=== PATIENT | female | born 1955 | race Caucasian/White ===

== ENCOUNTER 2023-04-27 23:50 | Inpatient (IN) | payer MEDICARE, SELFPAY ==
[2023-04-27 19:09] VITALS: BP 166/97; BMI 26.3
[2023-04-27 19:44] LABS: % Basophils 0.7 % (0-2); % Eosinophils 1.2 % (0-6); % Immature Granulocytes 0.3 % (0-0.5); % Lymphocytes 20.9 % (20.5-51.1); % Monocytes 10.7 % (1.7-9.3); % Neutrophils 66.2 % (42.2-75.2); Absolute Basophils 0.1 10^3/uL (0-0.2); Absolute Eosinophils 0.1 10^3/uL (0-0.7); Absolute Lymphocytes 2.4 10^3/uL (1.2-3.4); Absolute Monocytes 1.2 10^3/uL (0.1-0.6); Absolute Neutrophils 7.6 10^3/uL (1.4-6.5); Hematocrit 45.2 % (37.0-47.0); Mean Corp Hgb Conc. 33.2 g/dL (33.0-37.0); Mean Corpuscular Hgb 29.4 pg (27.0-31.0); Mean Corpuscular Volume 88.6 fL (81.0-99.0); Mean Platelet Volume 9.5 fL (7.4-10.4); Nucleated Red Blood Cells % 0 %; Platelet Count 352 10^3/uL (130-400); Red Cell Dist. Width 12.7 % (11.5-14.5); White Blood Cell Count 11.5 10^3/uL (4.8-10.8)
[2023-04-27 20:06] LABS: ALT (SGPT) 33 U/L (0-35); AST (SGOT) 26 U/L (14-36); Albumin 4.4 g/dl (3.5-5.0); Alkaline Phosphatase 66 U/L (38-126); Blood Urea Nitrogen 14 mg/dl (7-17); Calcium 9.6 mg/dl (8.4-10.2); Carbon Dioxide 26 mmol/L (22-30); Chloride 100 mmol/L (98-107); Estimated Creatinine Clearance 69 ml/min; Glucose 147 mg/dl (70-99); Potassium 4.5 mmol/L (3.5-5.1); Sodium 135 mmol/L (135-145); Total Bilirubin 0.8 mg/dl (0.2-1.3); eGFR > 60.00
[2023-04-27 20:07] LABS: Lipase 51 U/L (23-300)
[2023-04-27 21:17] VITALS: BP 128/66
--- NOTE | 2023-04-27 22:11 | ED.GENMED ---
History of Present Illness
General
Chief Complaint: Abdominal Pain
Source: patient and spouse
Time Seen by Provider: 04/27/23 20:29
Travel History
Have you had any contact with someone who has COVID-19?: No
Do you have any symptoms of coronavirus? Fever > 100 degrees, chills, cough, shortness of breath, sore throat, loss of taste or smell, muscle aches, or headache?: No
History of Present Illness
History of Present Illness:
67-year-old female presents with left lower quad abdominal pain. Patient states she had some pain about 2 weeks ago but seem to get little better. Today starting this morning the pain is persistent left side. She had a colonoscopy in her past
that showed diverticular disease. She has never had diverticulitis. Has had a low-grade temperature at home she states. Denies melena or hematochezia.
Past History
Past History
ED Past Surgical History: Tonsilectomy
Phy Exam
Physical Exam
Physical Exam:
CONSTITUTIONAL Patient alert and oriented to person, place and time. Well-appearing. Vital signs reviewed.
HEAD atraumatic, normocephalic.
EYES eyelids normal to inspection, Extraocular muscles intact, Conjunctiva normal, Sclera normal.
NECK normal range of motion, Trachea midline, no jugular venous distention.
RESPIRATORY CHEST No respiratory distress noted, Chest expansion equal, Bilateral breath sounds clear.
CARDIOVASCULAR regular rate and rhythm, Heart sounds normal.
ABDOMEN moderate left lower quadrant tenderness, mild distention, mild diffuse tenderness
BACK normal inspection, no obvious deformities
UPPER EXTREMITY range of motion normal, Motor strength normal, no cyanosis, no edema.
LOWER EXTREMITY range of motion normal, Motor strength normal, no cyanosis, no edema.
NEURO Speech normal, No focal motor deficits, Bono coma scale 15, Memory normal, Cranial Nerves intact to screening exam.
SKIN skin warm, dry, and normal in color.
PSYCHIATRIC patient oriented to person place and time, Normal affect.
Course
Orders/Labs/Results
Orders:
Orders
04/27/23 19:12
EKG [Electrocardiogram (*1)] Urgent
Reason for Study: Tachycardia
EKG- Treatment ONCE
04/27/23 19:25
Complete Blood Count/With Diff Urgent
Comprehensive Metabolic Panel Urgent
Lipase Urgent
04/27/23 20:54
CT Abd/pelvis W Iv Cont Urgent
Comment:
Reason For Exam: LLQ abd pain
04/27/23 22:58
Piperacillin/Tazo 3.375 Gram [Zosyn] 3.375 gram in 50 ml IV NOW
Abnormal Lab Results
04/27/23
19:25
WBC 11.5 H 10^3/uL
(4.8-10.8)
Absolute Neuts (auto) 7.6 H 10^3/uL
(1.4-6.5)
Absolute Monos (auto) 1.2 H 10^3/uL
(0.1-0.6)
Monocytes % 10.7 H %
(1.7-9.3)
Glucose 147 H mg/dl
(70-99)
04/27/23 19:25
04/27/23 19:25
Vital Signs
Initial and Last Documented VS:
Initial Vital Signs
Temp Pulse Resp BP Pulse Ox
98.6 F 114 24 166/97 99
04/27/23 19:09 04/27/23 19:09 04/27/23 19:09 04/27/23 19:09 04/27/23 19:09
Last Documented Vital Signs
Temp Pulse Resp BP Pulse Ox
98.6 F 107 18 128/66 96
04/27/23 19:09 04/27/23 21:17 04/27/23 21:17 04/27/23 21:17 04/27/23 21:17
MDM/Problems Addressed
MDM/Problems Addressed:
Abdominal pain, acute diverticulitis, perforated viscus
*Radiology
Radiology exam reviewed: preliminary read by ED provider (Free air noted) and radiology read reviewed
*Pulse Oximetry
Patient hypoxic: no
*Check And Transfer Beader Interpretation
Rate: normal
Interpretation: normal
Rhythm: sinus
*Critical Care Note
Total Time (30-74mins, 75-104mins- exclusive of procedures): 45 minutes
Data Reviewed
Review of Other/Old Records Reveals: Operative Reports (Prior colonoscopy reviewed from 2018)
Source: patient and spouse
Prescriptions/Medications Considered But Not Given:
Consider pain medication but patient does not want them at this time
Patient Management
Discussion with other providers: [employer] (Case discussed with colorectal surgery)
Escalation/DeEscalation of care consider admission/obs:
67-year-old female with acute diverticulitis and perforation. Admit. colorectal surgery reviewing CT...
ED Attending Note
-
Portions of this chart may have been created with voice recognition software.� Occasional wrong word or��sound alike� substitutions may have occurred due to the inherent limitations of voice recognition software.
Discharge Plan
Departure
Patient Disposition: Admit
Date of Disposition: 04/27/23
Time of Disposition: 23:07
Admit to: Med/Surg
Presentation/result/management discussed w/ accepting MD/DO: Hospitalist
Discharge Problem:
Perforated abdominal viscus, Acute diverticulitis
Prescriptions:
No Action
diazepam [Valium] 5 mg tablet
5 mg PO TID PRN (Reason: muscle spasm) Qty: 10 0RF
lidocaine 5 % adhesive patch,medicated
1 patch topical DAILY Qty: 15 0RF
Rx Instructions:
remove after 12 hrs
Interventions
Interventions:
*Risk Screen - Suicide Last Done: 04/27/23 19:09
*General Assessment Last Done: 04/27/23 21:07
*Neglect/Abuse Screening Last Done: 04/27/23 19:09
ED- Fall Risk Assessment Last Done: 04/27/23 21:19
*ED COVID-19 Vaccine History Last Done: 04/27/23 19:09
RM-Lmoixu-Dbwdzrmcld Assessment Last Done: 04/27/23 21:19
[2023-04-27] MEDS: ZOSYN 50 IV (23:08)
[2023-04-27 23:13] VITALS: BP 129/75
--- NOTE | 2023-04-27 23:43 | HPS.HSE ---
Family Physician
-
Family Physician: Heidi Ramirez
Chief Complaint
-
abdominal pain
History of Present Illness
67-year-old female past medical history of osteoporosis, diverticulosis here for left lower quadrant abdominal pain for 2 weeks. She did have some chills today. Denies nausea or vomiting. She has been constipated recently but did have vomiting
today. Denies any chest pain or shortness of breath. Denies any blood in stool.
Medical History
Past Medical History
Past Medical History: Reports Other (osteoporosis, diverticulosis)
Past Surgical History: Reports None
Social History
Tobacco: Non-smoker
Alcohol: None
Drug: None
Family History
Family History: Not pertinent
Allergies / Home Medications
Allergies reflects when Allergies were last updated in [employer].
Home Medications with original date entered in [employer]
Allergy/Medication List:
Allergies
Allergy/AdvReac Type Severity Reaction Status Date / Time
No Known Allergies Allergy Verified 10/17/22 09:42
Home Medications
cholecalciferol (vitamin D3) 50 mcg (2,000 unit) tablet (Vitamin D3) 50 mcg PO DAILY 04/27/23
Review of Systems
-
History Source: Patient
A 12 point ROS was completed and negative except as noted: Yes
Constitutional: Reports No Symptoms
EENT: Reports No Symptoms
Respiratory: Reports No Symptoms
Cardiac: Reports No Symptoms
Abdomen/GI: Reports See HPI
: Reports No Symptoms
Musculoskeletal: Reports No Symptoms
Skin: Reports No Symptoms
Neurological: Reports No Symptoms
Endocrine: Reports No Symptoms
Hematologic/Lymphatic: Reports No Symptoms
Psych: Reports No Symptoms
Physical Exam
Vital Signs
Vital Signs
Temp Pulse Resp BP Pulse Ox
98.6 F 107 18 128/66 96
04/27/23 19:09 04/27/23 21:17 04/27/23 21:17 04/27/23 21:17 04/27/23 21:17
Physical Exam
General: Well Developed, Well Nourished and No Apparent Distress
HEENT: NormoCephalic, Moist mucous membranes and Atraumatic
Respiratory: Clear
Cardiac: S1/S2 and Regular Rhythm; No Murmur or Rub
GI: Soft, Non Distended, Normal Bowel Sounds and Tender (LLQ ); No Organomegaly
Rectal: Deferred by Provider
Musculoskeletal: No Clubbing, No Cyanosis and No Edema
Skin: No Rash
Neuro: Nonfocal/grossly intact
Laboratory Results
-
04/27/23 19:25
04/27/23 19:25
Laboratory Results
Total Bilirubin 0.8 mg/dl (0.2-1.3) 04/27/23 19:25
AST 26 U/L (14-36) 04/27/23 19:25
ALT 33 U/L (0-35) 04/27/23 19:25
Alkaline Phosphatase 66 U/L (38-126) 04/27/23 19:25
Lipase 51 U/L (23-300) 04/27/23 19:25
Data Reviewed
-
Lab Data: Labs Reviewed by me
Old Records: Reviewed
Impression/Plan
-
IMPRESSION:
PLAN:
# Sepsis (sepsis, tachycardia ) secondary to severe sigmoid diverticulitis with perforation
-N.p.o.
-IV fluids
-Zosyn
-Colorectal to take to OR
-Dilaudid, Zofran as needed
Diverticulosis
Osteoporosis
Full code
DVT prophylaxis�SCDs
NPO
[2023-04-27] MEDS: NSS 1000 IV (23:57)
[2023-04-28] VITALS (17 sets, daily range): BP systolic 50–133; BP diastolic 32–88; BMI 25.7
--- NOTE | 2023-04-28 00:38 | CON.CRS ---
Consultation
-
Performing Provider: Robert Davis MD
Reason for Consultation: diverticulitis
Medical History
-
Chief Complaint: Abdominal pain
History of Present Illness:
67-year-old female with 2 weeks of abdominal discomfort which started on the right and has migrated over to the left and worsened with time. She also admits to some chills. Denies fevers. Denies changes in bowel habits. No prior episodes of
diverticulitis. Had a colonoscopy by Dr. Phillips in the past confirming diverticulosis and apparently showing some polyps. Blood work in the ER reveals mild leukocytosis with a white count of 11.5. Mildly tachycardic but normotensive. CT scan of
the abdomen and pelvis was performed and reveals inflammation of the proximal sigmoid consistent with diverticulitis as well as localized free air and subdiaphragmatic upper abdominal air. I was consulted for a colorectal surgical opinion regarding
her situation. 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
Past Medical History
Past Medical History: Other (Osteoporosis; diverticulosis; colon polyps)
Past Surgical History: Gynecological (Hysterectomy) and Tonsilectomy
Social History
Tobacco: Non-Smoker
Alcohol: None
Personal:
Living: With Family
Employment: Retired
Family History
Family History: Reviewed & Not Pertinent
Allergies / Home Medications
Allergy/AdvReac Type Severity Reaction Status Date / Time
No Known Allergies Allergy Verified 10/17/22 09:42
Medication Instructions Recorded Confirmed Type
cholecalciferol (vitamin D3) 50 50 mcg PO DAILY 04/27/23 04/27/23 History
mcg (2,000 unit) tablet (Vitamin
D3)
Review of Systems
-
A 10 point review of systems was completed, and was negative except as per HPI.
Physical Exam
Vital Signs
Temp 98.5 F 04/28/23 00:17
Pulse 105 04/28/23 00:17
Resp Rate 18 04/27/23 21:17
Blood pressure 133/77 04/28/23 00:00
SaO2 97 04/28/23 00:18
04/26/23 04/27/23 04/28/23
06:59 06:59 06:59
Actual Weight 71.668 kg
Body Mass Index (BMI) 26.3
Lab Results / Allergies
04/27/23 19:25
04/27/23:
WBC 11.5 10^3/uL (4.8-10.8) H 04/27/23:
Hgb 15.0 g/dL (12.0-16.0) 04/27/23:
Hct 45.2 % (37.0-47.0) 04/27/23:
Plt Count 352 10^3/uL (130-400) 04/27/23:
Abs Immat Gran (auto) 0.0 10^3/uL (0-0.05) 04/27/23:25
Neutrophils % 66.2 % (42.2-75.2) 04/27/23:25
Allergy/AdvReac Type Severity Reaction Status Date / Time
No Known Allergies Allergy Verified 10/17/22 09:42
Physical Exam
General: Well Developed
HEENT: Normocephalic
Respiratory: Clear
Cardiac: S1/S2 and Regular Rhythm
GI: Tender (Localized peritonitis of the left lower quadrant; tender but less so than other quadrants) and Distended (Mild)
Musculoskeletal: No Clubbing, No Cyanosis and No Edema
Neuro: Awake, Alert and Oriented
Psych: Calm
Data Reviewed
-
CT Scan: Image Personally Visualized and interpreted, Report Reviewed by me, Discussed with Patient and Discussed with Family
Labs: Labs Reviewed by me, Discussed with Patient and Discussed with Family
Assessment / Plan
-
67-year-old otherwise healthy female with known diverticular disease but no prior attacks of diverticulitis who currently has sigmoid diverticulitis complicated by perforation/free air. Some of the free air is in the upper quadrants which is a
concerning finding. She is also fairly tender and tachycardic. I discussed situation in detail with the patient and her at the bedside. I discussed the option of a trip to the OR for exploration with sigmoidectomy and likely colostomy. I
told her there is a chance that I would anastomose her although this is less likely. Risk benefits were discussed. Risk described included but not limited to bleeding, infection, anastomotic or rectal stump leak, masslike stricture, ureteral
injury, bowel or solid organ injury, urinary or sexual dysfunction, recurrence of diverticulitis, hernia formation, and anesthetic risk. I also discussed the option of continuing medical measures and close observation. She opted for surgery. All
questions answered.
--- NOTE | 2023-04-28 04:08 | W.IMMPOSTOP ---
Addendum entered and electronically signed by Lexa Davis MD 04/28/23 04:17:
Updated patient's , Felice, via phone conversation.
Original Note:
Surgical Immed Post Op Note
-
Primary Surgeon: Robert Davis MD
Assisting Surgeon: none
Pre-op Diagnosis: perforated sigmoid diverticulitis
Post-op Diagnosis: same
Procedure Performed: 1) sigmoidectomy 2) flexible sigmoidoscopy
Anesthesia Type: general plus local
Specimen / Cultures: sigmoid colon
Estimated Blood Loss: 100 cc
Complications: no immediate
Operative Findings: inflamed perforated proximal sigmoid without gross contamination
#19 Candelario in pelvis,
Pike in bladder.
Will send to med surg.
Will continue antibiotics empirically for a few days.
[2023-04-28] MEDS: NSS 1000 IV ×2 (05:10→14:41)
--- NOTE | 2023-04-28 05:10 | PTCARENOTE ---
Pt recieved from PACU. VSS. 2 L NC. axoo3 but drowsey and arrousable to verbal stimuli, in NAD. Bed locked and in lowest position, side rails in place, call light within reach, and questions answered at time of assessment.
[2023-04-28] MEDS: TORADOL 10 MG IV (05:51)
[2023-04-28 07:20] LABS: ALT (SGPT) 29 U/L (0-35); AST (SGOT) 29 U/L (14-36); Albumin 3.2 g/dl (3.5-5.0); Alkaline Phosphatase 55 U/L (38-126); Blood Urea Nitrogen 11 mg/dl (7-17); Calcium 7.4 mg/dl (8.4-10.2); Carbon Dioxide 19 mmol/L (22-30); Chloride 104 mmol/L (98-107); Estimated Creatinine Clearance 81 ml/min; Glucose 172 mg/dl (70-99); Magnesium 2.3 mg/dl (1.6-2.3); Potassium 4.3 mmol/L (3.5-5.1); Sodium 131 mmol/L (135-145); Total Bilirubin 1.6 mg/dl (0.2-1.3); Total Protein 5.5 g/dl (6.3-8.2); eGFR > 60.00
[2023-04-28 08:05] LABS: Hepatitis C Antibody Negative (Negative)
[2023-04-28] MEDS: MORPHINE SULFATE 2 MG IV ×2 (08:39→12:14)
[2023-04-28] MEDS: NSS (PRESERVATIVE FREE) 10 ML IV (08:40)
[2023-04-28] MEDS: PROTONIX IV 40 MG IV (08:41)
[2023-04-28] MEDS: ZOSYN 50 IV ×3 (08:41→19:50)
[2023-04-28 08:59] LABS: % Basophils 0.3 % (0-2); % Immature Granulocytes 0.4 % (0-0.5); % Lymphocytes 7.7 % (20.5-51.1); % Monocytes 7.9 % (1.7-9.3); % Neutrophils 83.7 % (42.2-75.2); Absolute Immature Granulocytes 0.1 10^3/uL (0-0.05); Absolute Neutrophils 10.6 10^3/uL (1.4-6.5); Hematocrit 38.5 % (37.0-47.0); Hemoglobin 13.6 g/dL (12.0-16.0); Mean Corp Hgb Conc. 35.3 g/dL (33.0-37.0); Mean Corpuscular Hgb 30.3 pg (27.0-31.0); Mean Corpuscular Volume 85.7 fL (81.0-99.0); Mean Platelet Volume 9.5 fL (7.4-10.4); Nucleated Red Blood Cells % 0 %; Platelet Count 300 10^3/uL (130-400); Red Blood Cell Count 4.49 10^6/uL (4.20-5.40); Red Cell Dist. Width 12.6 % (11.5-14.5); White Blood Cell Count 12.7 10^3/uL (4.8-10.8)
--- NOTE | 2023-04-28 10:16 | W.PN.HOSP.TC ---
Today's Communication/Plan
-
see A/P
Assessment / Plan
Assessment / Plan
67-year-old female past medical history of osteoporosis, diverticulosis here for left lower quadrant abdominal pain for 2 weeks. She also c/o chills and vomited on DOA.
A/P:
# Sepsis POA secondary to severe sigmoid diverticulitis with perforation
# h/o Diverticulosis
s/p emergent sigmoidectomy on admission 04/28/23
cont NPO, with IVF
Cont Zosyn
Follow blood Cx (ordered after Abx)
Pain control with Morphine PRN
antiemetic with Zofran as needed
# Acute hypoxic respiratory insufficiency
pt placed on 2L NC, cont for now per pt preference
# Osteoporosis
# Hyponatremia
Full code
DVT prophylaxis�SCDs
NPO
Anticipated Discharge: > 48 hours
Subjective/Interval History
-
Date of Service: April 28, 2023
Objective Data
-
Labs:
Laboratory Results
04/28/23 04/28/23
06:19 08:34
WBC Cancelled 12.7 H
Hgb Cancelled 13.6
Hct Cancelled 38.5
Plt Count Cancelled 300
Sodium 131 L
Potassium 4.3
Chloride 104
Carbon Dioxide 19 L
BUN 11
Creatinine 0.6
Glucose 172 H
Calcium 7.4 L D
Total Bilirubin 1.6 H
AST 29
ALT 29
Alkaline Phosphatase 55
Vital Signs:
Vital Signs
Temp Pulse Resp BP Pulse Ox
36.5 C 68 16 101/62 96
04/28/23 07:15 04/28/23 07:15 04/28/23 07:15 04/28/23 07:15 04/28/23 07:15
I&O
04/27/23 04/28/23 04/29/23
06:59 06:59 06:59
Intake Total 700 / 700
Output Total 310 / 310
Balance 390 / 390
Review of Systems
-
All other systems: Reviewed and negative
Physical Exam
-
General: Well Developed, Well Nourished, No Apparent Distress, Comfortable and Conversant
HEENT: Normocephalic, Atraumatic, Nose Appears Normal, Ears Appear Normal and Oxygen (2L NC)
Respiratory: Clear to Auscultation and Non Labored Respirations; Negative Accessory Resp Muscle Use
Cardiac: Regular Rhythm and S1/S2
GI: Soft, Nontender, Nondistended, Normal Bowel Sounds and Other (abdominal drain in place )
Skin: Warm and Dry
Neuro: Awake, Alert, Oriented and AO x 3
Psych: Calm and Intact Judgement/Insight
Data Reviewed
-
CT Scan: Report Reviewed by me
Labs: Labs Reviewed by me
--- NOTE | 2023-04-28 11:03 | W.PN.CRS1 ---
Today's Communication / Plan
-
Okay for DVT PPx
Possible clears this p.m.
Possible DC Pike in p.m. if UOP adequate
Continue IV Zosyn
Assessment/Plan
-
67-year-old female with PMH of diverticulosis who presents for 2 weeks of LLQ abdominal pain, found to have perforated diverticulitis with pneumoperitoneum, WBC 11.5, hemodynamically stable
POD 0 exlap sigmoidectomy
Wbc 12.7, Hb 13.6 from 15.0
�Continue n.p.o. with sips, okay for p.o. meds; possible clears this afternoon
� Pain control with IV Toradol and IV morphine as needed
�Will start DVT PPx with Lovenox
� Continue IV Zosyn, would recommend 4-day course
� Continue Pike, if UOP adequate by this afternoon, will DC
� IAN drain to bulb suction
� IS/OOB, will consult PT
� Appreciate hospitalist for comorbidities
Subjective Data
Subjective Data
Date of Service: April 28, 2023
No overnight events.
Pain controlled.
Denies nausea/vomiting. Tolerating sips
No bowel function +voiding
Pt is not OOB yet
Objective Data
-
Vital Signs
Temp Pulse Resp BP Pulse Ox
97.7 F 68 16 101/62 96
04/28/23 07:15 04/28/23 07:15 04/28/23 07:15 04/28/23 07:15 04/28/23 07:15
Intake & Output
04/27/23 04/28/23 04/29/23
06:59 06:59 06:59
Intake Total 700 / 700
Output Total 310 / 310
Balance 390 / 390
Intake:
IV fluids (Total) 700 / 700
normosol 700 / 700
Output:
Drain Output (Total)
Right Lower Abdomen Taurus-
Walker
Urine, Pike 100 / 100
Lab Results
04/28/23 08:34
04/28/23 06:19
Physical Exam
-
General: No Acute Distress and AOx3
HEENT: Grossly Normal
Abdomen: Soft, Non Distended, Non Tender (Appropriately tender), No Guarding and No Rebound
Skin: Warm and Dry
Wound: No Signs of Infection, Dressing in Place and No Skin Erythema
[2023-04-28] MEDS: LOVENOX 40 MG SC (17:03)
[2023-04-28] MEDS: MORPHINE SULFATE 4 MG IV ×2 (18:12→21:44)
[2023-04-29] MEDS: NSS 1000 IV (01:20)
[2023-04-29] MEDS: ZOSYN 50 IV ×4 (01:21→20:50)
[2023-04-29] MEDS: MORPHINE SULFATE 2 MG IV ×2 (01:21→06:12)
[2023-04-29 03:30] VITALS: BP 109/54
[2023-04-29 06:05] VITALS: BMI 27.9
[2023-04-29 07:42] VITALS: BP 116/63
[2023-04-29] MEDS: NSS (PRESERVATIVE FREE) 10 ML IV (08:25)
[2023-04-29] MEDS: PROTONIX IV 40 MG IV (08:25)
[2023-04-29 08:30] LABS: Hematocrit 35.2 % (37.0-47.0); Hemoglobin 11.8 g/dL (12.0-16.0); Mean Corp Hgb Conc. 33.5 g/dL (33.0-37.0); Mean Corpuscular Hgb 29.6 pg (27.0-31.0); Mean Corpuscular Volume 88.2 fL (81.0-99.0); Mean Platelet Volume 10.1 fL (7.4-10.4); Platelet Count 272 10^3/uL (130-400); Red Blood Cell Count 3.99 10^6/uL (4.20-5.40); Red Cell Dist. Width 13.1 % (11.5-14.5); White Blood Cell Count 10.4 10^3/uL (4.8-10.8)
[2023-04-29 09:15] VITALS: BP 112/58; PULSE 78; O2SAT 95
[2023-04-29 09:20] LABS: Blood Urea Nitrogen 10 mg/dl (7-17); Calcium 7.9 mg/dl (8.4-10.2); Carbon Dioxide 25 mmol/L (22-30); Chloride 106 mmol/L (98-107); Estimated Creatinine Clearance 69 ml/min; Glucose 97 mg/dl (70-99); Potassium 3.9 mmol/L (3.5-5.1); Sodium 136 mmol/L (135-145); eGFR > 60.00
--- NOTE | 2023-04-29 09:55 | W.PN.HOSP.TC ---
Today's Communication/Plan
-
see A/P
Assessment / Plan
Assessment / Plan
67-year-old female past medical history of osteoporosis, diverticulosis here for left lower quadrant abdominal pain for 2 weeks. She also c/o chills and vomited on DOA.
A/P:
# Sepsis POA secondary to severe sigmoid diverticulitis with perforation
# h/o Diverticulosis
s/p emergent sigmoidectomy on admission 04/28/23
advanced to clears, cont clears for now, ADAT per surgery
Cont Zosyn
blood Cx negative (obtained after Abx)
Pain control with Morphine PRN ; antiemetic with Zofran as needed
# Acute hypoxic respiratory insufficiency, resolved
weaned off O2
# Osteoporosis
# Hyponatremia
Full code
DVT prophylaxis�SCDs
DW CRS
Anticipated Discharge: 24 - 48 hours
Subjective/Interval History
-
Date of Service: April 29, 2023
Objective Data
-
Labs:
Laboratory Results
04/29/23
06:32
WBC 10.4
Hgb 11.8 L
Hct 35.2 L
Plt Count 272
Sodium 136
Potassium 3.9
Chloride 106
Carbon Dioxide 25
BUN 10
Creatinine 0.7
Glucose 97
Calcium 7.9 L
Vital Signs:
Vital Signs
Temp Pulse Resp BP Pulse Ox
36.8 C 75 18 116/63 95
04/29/23 07:42 04/29/23 07:42 04/29/23 07:42 04/29/23 07:42 04/29/23 07:42
I&O
04/28/23 04/29/23 04/30/23
06:59 06:59 06:59
Intake Total 700 / 700 3080 / 3080
Output Total 310 / 310 1705 / 1705
Balance 390 / 390 1375 / 1375
Review of Systems
-
All other systems: Reviewed and negative
Physical Exam
-
General: Well Developed, Well Nourished, No Apparent Distress, Comfortable and Conversant
HEENT: Normocephalic, Atraumatic, Nose Appears Normal and Ears Appear Normal
Respiratory: Clear to Auscultation and Non Labored Respirations; Negative Accessory Resp Muscle Use
Cardiac: Regular Rhythm and S1/S2
GI: Soft, Nontender, Nondistended, Normal Bowel Sounds and Other (abdominal drain in place )
Skin: Warm and Dry
Neuro: Awake, Alert, Oriented and AO x 3
Psych: Calm and Intact Judgement/Insight
Data Reviewed
-
CT Scan: Report Reviewed by me
Labs: Labs Reviewed by me
[2023-04-29] MEDS: TORADOL 10 MG IV ×2 (12:29→18:29)
--- NOTE | 2023-04-29 12:36 | W.PN.CRS1 ---
Today's Communication / Plan
-
Clear liquids
Trend labs
Pain control
Assessment/Plan
-
67-year-old female with PMH of diverticulosis who presents for 2 weeks of LLQ abdominal pain, found to have perforated diverticulitis with pneumoperitoneum
POD 1 exlap sigmoidectomy
Electrolytes stable
Mild acute blood loss anemia from intraop losses with some component of hemodilution
Await bowel function
- H/H this afternoon. CBC, BMP in am
� Continue clear liquids
� Pain control with IV Toradol scheduled and prn Acetaminophen, Dilaudid
� SCDs while in bed. TEDs. Lovenox 40mg given yesterday, will hold tonight if h/h still drifting down
� Continue IV Zosyn, would recommend 4-day course total
� IAN drain to bulb suction
� IS/OOB, PT following
� Hospitalist following with us for medical management
Subjective Data
Procedure
1. Sigmoidectomy.
2. Flexible sigmoidoscopy.
Subjective Data
Date of Service: April 29, 2023
Patient seen and examined at bedside with Dr. Allen. Denies n/v. No flatus as of yet. Does note some mild generalized edema. Voiding since hastings removed. Questions addressed
Objective Data
-
Vital Signs
Temp Pulse Resp BP Pulse Ox
98.3 F 75 18 116/63 95
04/29/23 07:42 04/29/23 07:42 04/29/23 07:42 04/29/23 07:42 04/29/23 07:42
Intake & Output
04/28/23 04/29/23 04/30/23
06:59 06:59 06:59
Intake Total 700 / 700 3080 / 3080
Output Total 310 / 310 1705 / 1705
Balance 390 / 390 1375 / 1375
Intake:
Oral fluids 480 / 480
IV fluids (Total) 700 / 700 2400 / 2400
normosol 700 / 700
IV piggybacks 200 / 200
Output:
Drain Output (Total)
Right Lower Abdomen Taurus-
Walker
Urine, [place] 100 / 100 600 / 600
Urine, Voided 900 / 900
Lab Results
04/29/23 06:32
04/29/23 06:32
Physical Exam
-
General: No Acute Distress and AOx3
HEENT: Grossly Normal
Abdomen: Soft, Non Distended, Non Tender (Appropriately tender), No Guarding and No Rebound
Skin: Warm and Dry
Wound: No Signs of Infection, Dressing in Place (shadowing noted) and No Skin Erythema
--- NOTE | 2023-04-29 13:08 | CM ---
Reviewed the chart notes and spoke with the patient at the bedside. The patient is POD #1 exlap sigmoidectomy. The patient resides with her spouse in a two story home with two steps to enter. The patient reports no DME/VN/SNF in the past. The
patient confirmed her pharmacy of choice is the [facility]. Patient currently has a IAN drain. CM continues to be available to patient/family and is monitoring medical plan for needs at discharge.
Plan: Discharge to home when medically stable with no needs anticipated at this time.
[2023-04-29 13:51] LABS: Hematocrit 38.3 % (37.0-47.0); Hemoglobin 12.9 g/dL (12.0-16.0)
[2023-04-29 15:56] VITALS: BP 145/74
[2023-04-29] MEDS: LOVENOX 40 MG SC (18:29)
[2023-04-29] MEDS: NSS IV (18:35)
[2023-04-30] MEDS: TORADOL 10 MG IV ×5 (00:05→23:41)
[2023-04-30 00:08] VITALS: BP 137/75
[2023-04-30] MEDS: ZOSYN 50 IV ×4 (02:19→20:56)
[2023-04-30 06:00] VITALS: BMI 27.5
--- NOTE | 2023-04-30 06:13 | PTCARENOTE ---
Pt reports has passed flatus but has no BM this shift. reports pain well controlled with Toradol.
[2023-04-30 06:40] LABS: Hematocrit 34.6 % (37.0-47.0); Hemoglobin 11.6 g/dL (12.0-16.0); Mean Corp Hgb Conc. 33.5 g/dL (33.0-37.0); Mean Corpuscular Hgb 29.6 pg (27.0-31.0); Mean Corpuscular Volume 88.3 fL (81.0-99.0); Mean Platelet Volume 9.6 fL (7.4-10.4); Platelet Count 283 10^3/uL (130-400); Red Blood Cell Count 3.92 10^6/uL (4.20-5.40); Red Cell Dist. Width 12.8 % (11.5-14.5); White Blood Cell Count 8.2 10^3/uL (4.8-10.8)
[2023-04-30 06:59] LABS: Blood Urea Nitrogen 6 mg/dl (7-17); Calcium 8.5 mg/dl (8.4-10.2); Carbon Dioxide 27 mmol/L (22-30); Chloride 107 mmol/L (98-107); Estimated Creatinine Clearance 78 ml/min; Glucose 90 mg/dl (70-99); Potassium 3.7 mmol/L (3.5-5.1); Sodium 139 mmol/L (135-145); eGFR > 60.00
[2023-04-30 07:40] VITALS: BP 140/80
[2023-04-30] MEDS: DILAUDID 0.5 MG IV ×3 (08:26→22:05)
[2023-04-30] MEDS: NSS (PRESERVATIVE FREE) 10 ML IV (08:28)
[2023-04-30] MEDS: PROTONIX IV 40 MG IV (08:28)
--- NOTE | 2023-04-30 10:09 | W.PN.HOSP.TC ---
Today's Communication/Plan
-
see A/P
Assessment / Plan
Assessment / Plan
67-year-old female past medical history of osteoporosis, diverticulosis here for left lower quadrant abdominal pain for 2 weeks. She also c/o chills and vomited on DOA.
A/P:
# Sepsis POA secondary to severe sigmoid diverticulitis with perforation
# h/o Diverticulosis
s/p emergent sigmoidectomy on admission 04/28/23
diet advanced to clears, cont clears for now, ADAT per surgery
Cont empiric Zosyn for 5 days
Pain control with Morphine PRN ; antiemetic with Zofran as needed
# Acute hypoxic respiratory insufficiency, resolved
weaned off O2
# Osteoporosis
# Hyponatremia
Full code
DVT prophylaxis�lovenox SQ
DW CRS
Anticipated Discharge: 24 - 48 hours
Subjective/Interval History
-
Date of Service: April 30, 2023
Objective Data
-
Labs:
Laboratory Results
04/30/23
05:57
WBC 8.2
Hgb 11.6 L
Hct 34.6 L
Plt Count 283
Sodium 139
Potassium 3.7
Chloride 107
Carbon Dioxide 27
BUN 6 L
Creatinine 0.7
Glucose 90
Calcium 8.5
Vital Signs:
Vital Signs
Temp Pulse Resp BP Pulse Ox
36.4 C 81 18 140/80 96
04/30/23 07:40 04/30/23 07:40 04/30/23 07:40 04/30/23 07:40 04/30/23 07:40
I&O
04/29/23 04/30/23 05/01/23
06:59 06:59 06:59
Intake Total 3080 / 3080 1350 / 1350
Output Total 1705 / 1705 1927 / 1927
Balance 1375 / 1375 -578 / -578
Review of Systems
-
All other systems: Reviewed and negative
Physical Exam
-
General: Well Developed, Well Nourished, No Apparent Distress, Comfortable and Conversant
HEENT: Normocephalic, Atraumatic, Nose Appears Normal and Ears Appear Normal
Respiratory: Clear to Auscultation and Non Labored Respirations; Negative Accessory Resp Muscle Use
Cardiac: Regular Rhythm and S1/S2
GI: Soft, Nontender, Nondistended and Normal Bowel Sounds
Skin: Warm and Dry
Neuro: Awake, Alert, Oriented and AO x 3
Psych: Calm and Intact Judgement/Insight
Data Reviewed
-
CT Scan: Report Reviewed by me
Labs: Labs Reviewed by me
--- NOTE | 2023-04-30 11:37 | W.PN.CRS1 ---
Today's Communication / Plan
-
fulls
Assessment/Plan
-
67-year-old female with PMH of diverticulosis who presents for 2 weeks of LLQ abdominal pain, found to have perforated diverticulitis with pneumoperitoneum
POD#2 exlap sigmoidectomy
1. Vitals normal.
2. Labs normal.
3. Advance diet to fulls.
4. DVT prophylaxis: Lovenox, TEDS, SCDS.
5. Continue IAN drain - will remove prior to discharge.
6. Pain control with IV Toradol scheduled and prn Acetaminophen, Dilaudid.
7. OOB with PT.
8. OR pathology pending.
9. Continue IV antibiotics - zosyn.
10. Appreciate hospitalist.
Subjective Data
Procedure
1. Sigmoidectomy.
2. Flexible sigmoidoscopy.
Subjective Data
Date of Service: April 30, 2023
Patient states her pain is better controlled with the change to Dilaudid. She has flatus. She tolerated clears without difficulty.
Objective Data
-
Vital Signs
Temp Pulse Resp BP Pulse Ox
97.5 F 81 18 140/80 96
04/30/23 07:40 04/30/23 07:40 04/30/23 07:40 04/30/23 07:40 04/30/23 08:00
Intake & Output
04/29/23 04/30/23 05/01/23
06:59 06:59 06:59
Intake Total 3080 / 3080 1350 / 1350
Output Total 1705 / 1705 1928 / 1928
Balance 1375 / 1375 -578 / -578
Intake:
Oral fluids 480 / 480 1200 / 1200
IV fluids (Total) 2400 / 2400
IV piggybacks 200 / 200 150 / 150
Output:
Drain Output (Total)
Right Lower Abdomen Taurus-
Walker
Urine, Pike 600 / 600
Urine, Voided 900 / 900 183 / 183
Other:
Number of approximated MODERATE 2
amounts of urine
Lab Results
04/30/23 05:57
04/30/23 05:57
Physical Exam
-
General: No Acute Distress and AOx3
Abdomen: Soft, Non Distended and Non Tender
Wound: Dressing Changed and Other (nikki in place (bloody), kept in, dressing changed with gauze)
[2023-04-30 15:45] VITALS: BP 125/64
[2023-04-30] MEDS: LOVENOX 40 MG SC (17:19)
[2023-04-30 23:02] VITALS: BP 129/62
[2023-05-01] MEDS: ZOSYN 50 IV ×4 (03:00→21:07)
[2023-05-01 05:17] LABS: Hematocrit 36.1 % (37.0-47.0); Hemoglobin 12.1 g/dL (12.0-16.0); Mean Corp Hgb Conc. 33.5 g/dL (33.0-37.0); Mean Corpuscular Hgb 29.4 pg (27.0-31.0); Mean Corpuscular Volume 87.8 fL (81.0-99.0); Mean Platelet Volume 9.2 fL (7.4-10.4); Platelet Count 303 10^3/uL (130-400); Red Blood Cell Count 4.11 10^6/uL (4.20-5.40); Red Cell Dist. Width 12.7 % (11.5-14.5); White Blood Cell Count 7.3 10^3/uL (4.8-10.8)
[2023-05-01] MEDS: TORADOL 10 MG IV ×3 (05:34→17:56)
[2023-05-01 05:39] VITALS: BMI 27.6
[2023-05-01 05:44] LABS: Blood Urea Nitrogen 6 mg/dl (7-17); Calcium 8.7 mg/dl (8.4-10.2); Carbon Dioxide 26 mmol/L (22-30); Chloride 108 mmol/L (98-107); Estimated Creatinine Clearance 78 ml/min; Glucose 102 mg/dl (70-99); Potassium 3.6 mmol/L (3.5-5.1); Sodium 137 mmol/L (135-145); eGFR > 60.00
[2023-05-01 07:25] VITALS: BP 141/79
[2023-05-01] MEDS: NSS (PRESERVATIVE FREE) 10 ML IV (08:31)
[2023-05-01] MEDS: PROTONIX IV 40 MG IV (08:31)
[2023-05-01] MEDS: DILAUDID 0.5 MG IV (08:32)
[2023-05-01] MEDS: FLUSH (NSS) 3 FLUSH IV (08:32)
--- NOTE | 2023-05-01 11:11 | W.PN.HOSP.TC ---
Today's Communication/Plan
-
see outlined plan
Assessment / Plan
Assessment / Plan
67-year-old female past medical history of osteoporosis, diverticulosis here for left lower quadrant abdominal pain for 2 weeks. She also c/o chills and vomited on DOA.
Assessment:
Sepsis POA d/t severe sigmoid diverticulitis with acute perforation
- s/p ex-lap, sigmoidectoym 04/27
- continue Zosyn 5 day course
- prn pain control, anti-emetics
- ADAT as per surgery
- drain care per surgery
- possibly add Miralax in 24 hours
- PT/OT
Acute hypoxic respiratory insufficiency, resolved
- weaned off O2
Osteoporosis - on Vit D
Hyponatremia - resolved
Code: Full
DVT prophylaxis: Lovenox/SCDs
Anticipated Discharge: Within 24 hours
Subjective/Interval History
-
Date of Service: May 01, 2023
+ flatus, no BM
pain controlled
Objective Data
-
Labs:
Laboratory Results
05/01/23
05:05
WBC 7.3
Hgb 12.1
Hct 36.1 L
Plt Count 303
Sodium 137
Potassium 3.6
Chloride 108 H
Carbon Dioxide 26
BUN 6 L
Creatinine 0.7
Glucose 102 H
Calcium 8.7
Vital Signs:
Vital Signs
Temp Pulse Resp BP Pulse Ox
98.1 F 87 16 141/79 99
05/01/23 07:25 05/01/23 07:25 05/01/23 07:25 05/01/23 07:25 05/01/23 07:25
I&O
04/30/23 05/01/23 05/02/23
06:59 06:59 06:59
Intake Total 1350 / 1350 1110 / 1110
Output Total 1927 / 1927 60 / 60
Balance -578 / -578 1050 / 1050
Physical Exam
-
General: No Apparent Distress
HEENT: Normocephalic and Atraumatic
Respiratory: Clear to Auscultation; Negative Wheezes
Cardiac: Regular Rhythm and S1/S2
GI: Soft, Nontender and Other (IAN drain)
Neuro: AO x 3
Hematologic / Lymphatic: No Lymphadenopathy
Psych: Calm
Data Reviewed
-
Total Time Spent with Patient (in minutes): 42
Labs: Labs Reviewed by me
--- NOTE | 2023-05-01 11:31 | W.PN.CRS1 ---
Today's Communication / Plan
-
low residue diet
Assessment/Plan
-
67-year-old female with PMH of diverticulosis who presents for 2 weeks of LLQ abdominal pain, found to have perforated diverticulitis with pneumoperitoneum
POD#3 exlap sigmoidectomy
1. Vitals normal.
2. Labs normal.
3. Advance diet to low residue.
4. DVT prophylaxis: Lovenox, TEDS, SCDS.
5. Continue IAN drain - will remove prior to discharge.
6. Pain control with IV Toradol scheduled and prn Acetaminophen, Dilaudid for breakthrough, oxycodone po PRN added.
7. OOB with PT.
8. OR pathology pending.
9. Continue IV antibiotics - zosyn.
10. Appreciate hospitalist.
Subjective Data
Procedure
1. Sigmoidectomy.
2. Flexible sigmoidoscopy.
Subjective Data
Date of Service: May 01, 2023
Patient states she feels 'okay'. Her pain is controlled. She has flatus. She has not had a bowel movement. She denies nausea or vomiting.
Objective Data
-
Vital Signs
Temp Pulse Resp BP Pulse Ox
98.1 F 87 16 141/79 99
05/01/23 07:25 05/01/23 07:25 05/01/23 07:25 05/01/23 07:25 05/01/23 07:25
Intake & Output
04/30/23 05/01/23 05/02/23
06:59 06:59 06:59
Intake Total 1350 / 1350 1110 / 1110
Output Total 1927 / 1927 60 / 60
Balance -578 / -578 1050 / 1050
Intake:
Oral fluids 1200 / 1200 880 / 880
IV fluids (Total) 30 / 30
IV piggybacks 150 / 150 200 / 200
Output:
Drain Output (Total)
Right Lower Abdomen Taurus-
Walker
Urine, Voided 1829 / 1829
Other:
Number of approximated MODERATE 2 2
amounts of urine
Number of approximated LARGE 1
amounts of urine
Lab Results
05/01/23 05:05
05/01/23 05:05
Physical Exam
-
General: No Acute Distress and AOx3
Abdomen: Soft, Non Distended and Non Tender
Wound: Dressing Changed (nikki removed)
--- NOTE | 2023-05-01 12:27 | PTOTSP ---
orders received, chart reviewed. spoke with pt, has been up OOB since surgery, ambulating without a device. pt reports completing simple ADLs without difficulty, pain is managed. educated pt on clothing options to increase independence with task. pt
verbalized understanding. no acute OT needs identified, will sign off.
--- NOTE | 2023-05-01 14:01 | CM ---
Addendum entered by Zara Montemayor RN 05/01/23 16:02:
IMM signed and placed on chart.
Original Note:
Reviewed the chart notes and spoke with the patient at the bedside. CM consult for VN/homecare received. Discussed various VNs, patient requested [facility] as first choice and VN as second. Referral sent in Care Port. CM continues to be
available to patient/family and is monitoring medical plan for needs at discharge.
Plan: Discharge to home with VN services.
[2023-05-01 15:20] VITALS: BP 126/61
[2023-05-01] MEDS: LOVENOX 40 MG SC (17:55)
[2023-05-01] MEDS: FLUSH (NSS) 2 FLUSH IV (17:56)
[2023-05-01] MEDS: ROXICODONE 5 MG PO (21:56)
[2023-05-01 22:45] VITALS: BP 139/73
[2023-05-02] MEDS: TORADOL IV ×2 (01:56→05:34)
[2023-05-02] MEDS: ZOSYN 50 IV ×2 (02:45→09:26)
[2023-05-02 05:04] VITALS: BMI 27.3
[2023-05-02 06:00] LABS: Hematocrit 36.5 % (37.0-47.0); Hemoglobin 12.4 g/dL (12.0-16.0); Mean Corpuscular Hgb 29.7 pg (27.0-31.0); Mean Corpuscular Volume 87.5 fL (81.0-99.0); Mean Platelet Volume 9.2 fL (7.4-10.4); Platelet Count 338 10^3/uL (130-400); Red Blood Cell Count 4.17 10^6/uL (4.20-5.40); Red Cell Dist. Width 12.8 % (11.5-14.5); White Blood Cell Count 7.4 10^3/uL (4.8-10.8)
[2023-05-02 06:27] LABS: Blood Urea Nitrogen 10 mg/dl (7-17); Calcium 8.6 mg/dl (8.4-10.2); Carbon Dioxide 27 mmol/L (22-30); Chloride 108 mmol/L (98-107); Estimated Creatinine Clearance 68 ml/min; Glucose 103 mg/dl (70-99); Potassium 3.7 mmol/L (3.5-5.1); Sodium 137 mmol/L (135-145); eGFR > 60.00
[2023-05-02 07:46] VITALS: BP 121/67
[2023-05-02] MEDS: PROTONIX 40 MG PO (09:26)
[2023-05-02] MEDS: ROXICODONE 5 MG PO (09:26)
[2023-05-02] MEDS: FLUSH (NSS) 2 FLUSH IV (09:27)
--- NOTE | 2023-05-02 10:52 | W.PN.CRS1 ---
Addendum entered and electronically signed by Lexa Davis MD 05/02/23 12:46:
I saw and examined the patient.
The PA's note was reviewed and I agree with the note.
Comment:
Seen in am with PA.
Tolerating diet with BMs.
Vitals and labs ok.
Abdominal dressings changed. Incision looked good--nikki removed.
IAN with SS---removed at bedside.
Discharge per hospitalist.
Original Note:
Today's Communication / Plan
-
okay for dc
Assessment/Plan
-
67-year-old female with PMH of diverticulosis who presents for 2 weeks of LLQ abdominal pain, found to have perforated diverticulitis with pneumoperitoneum
POD#4 exlap sigmoidectomy
1. Vitals normal.
2. Labs normal.
3. Continue low residue.
4. DVT prophylaxis: Lovenox, TEDS, SCDS.
5. IAN drain removed at bedside.
6. Pain control with IV Toradol scheduled and prn Acetaminophen, oxycodone po PRN.
7. OOB with PT.
8. OR pathology pending.
9. Continue IV antibiotics - zosyn. Transition to po antibiotics as an outpatient.
10. Appreciate hospitalist.
11. Okay for dc. Will need follow up with Dr. Davis in 2 weeks in the office, brian to be removed at that time. Surgery discussed at length with the patient.
Subjective Data
Procedure
1. Sigmoidectomy.
2. Flexible sigmoidoscopy.
Subjective Data
Date of Service: May 02, 2023
Patient states she feels well. She has no complaints. She is tolerating a diet.
Objective Data
-
Vital Signs
Temp Pulse Resp BP Pulse Ox
98.7 F 74 17 121/67 97
05/02/23 07:46 05/02/23 07:46 05/02/23 07:46 05/02/23 07:46 05/02/23 07:46
Intake & Output
05/01/23 05/02/23 05/03/23
06:59 06:59 06:59
Intake Total 1110 / 1110 2720 / 2720
Output Total /
Balance 1050 / 1050 2650 / 2650
Intake:
Oral fluids 880 / 880 2440 / 2440
IV fluids (Total) 30 30 80 / 80
IV piggybacks 200 / 200 200 / 200
Output:
Drain Output (Total) 70 / 70
Right Lower Abdomen Taurus-
Walker
Other:
Number of approximated SMALL 12
amounts of urine
Number of approximated MODERATE 2
amounts of urine
Number of approximated LARGE 1 3
amounts of urine
Lab Results
05/02/23 05:32
05/02/23 05:32
Physical Exam
-
General: No Acute Distress and AOx3
Abdomen: Soft, Non Distended, Non Tender and Other (colostomy warm and pink with function)
Wound: No Signs of Infection and Dressing Changed
--- NOTE | 2023-05-02 11:47 | CM ---
Reviewed the chart notes. [facility] declined patient, referral sent to VN. VN accepted the patient. continues to be available to patient/family and is monitoring medical plan for needs at discharge.
Plan: Discharge to home with VN services.
--- NOTE | 2023-05-02 11:57 | W.PN.HOSP.TC ---
Addendum entered and electronically signed by Amparo Meredith MD 05/02/23 12:05:
More than 30 minutes spent in discharge including
Final examination of the patient
Summarizing hospital stay
Instructions for continuing care to all relevant caregivers
Preparation of discharge records, prescriptions, and referral forms
Total time spent (in minutes): 42
Original Note:
Today's Communication/Plan
-
dc home vn
Assessment / Plan
Assessment / Plan
67-year-old female past medical history of osteoporosis, diverticulosis here for left lower quadrant abdominal pain for 2 weeks. She also c/o chills and vomited on DOA.
Assessment:
Sepsis POA d/t severe sigmoid diverticulitis with acute perforation
- s/p ex-lap, sigmoidectoym 04/27
- dc on Augmentin x 3 days
- prn pain control, anti-emetics
- LRD at dc
- drain removed
- dc home VN: follow up with Dr. Davis in 2 weeks in the office, brian to be removed at that time
Acute hypoxic respiratory insufficiency, resolved
- weaned off O2
Osteoporosis - on Vit D
Hyponatremia - resolved
Code: Full
DVT prophylaxis: Lovenox/SCDs
Anticipated Discharge: Today
Subjective/Interval History
-
Date of Service: May 02, 2023
doing well, no complaints
Objective Data
-
Labs:
Laboratory Results
05/02/23
05:32
WBC 7.4
Hgb 12.4
Hct 36.5 L
Plt Count 338
Sodium 137
Potassium 3.7
Chloride 108 H
Carbon Dioxide 27
BUN 10
Creatinine 0.8
Glucose 103 H
Calcium 8.6
Vital Signs:
Vital Signs
Temp Pulse Resp BP Pulse Ox
98.7 F 74 17 121/67 97
05/02/23 07:46 05/02/23 07:46 05/02/23 07:46 05/02/23 07:46 05/02/23 09:22
I&O
05/01/23 05/02/23 05/03/23
06:59 06:59 06:59
Intake Total 1110 / 1110 2720 / 2720
Output Total 60 / 60 70 / 70
Balance 1050 / 1050 2650 / 2650
Physical Exam
-
General: No Apparent Distress
HEENT: Normocephalic and Atraumatic
Respiratory: Negative Wheezes
Cardiac: Regular Rhythm and S1/S2
GI: Soft
Genito-urinary: No Costovertebral Tender
Neuro: AO x 3
Psych: Calm
Data Reviewed
-
Total Time Spent with Patient (in minutes): 42
Labs: Labs Reviewed by me
--- NOTE | 2023-05-02 12:05 | W.DS.TRANS ---
DC Summary - [employer] Car [employer]
-
Discharge Instructions:
Discharge Diagnosis/Procedures perforated diverticulitis with pneumoperitoneum
s/p sigmoidectomy
Diet Low Residue
Activity As tolerated
Bathing Restrictions None
Instructions:
Stand-Alone Forms:
Changes to Home Medications: No
Discharge Medications:
DC Medications w/original date entered in [employer]
cholecalciferol (vitamin D3) 50 mcg (2,000 unit) tablet (Vitamin D3) 50 mcg PO DAILY 04/27/23
acetaminophen 325 mg tablet 650 mg PO Q4HPRN PRN mild pain #30 tabs 05/02/23
amoxicillin 875 mg-potassium clavulanate 125 mg tablet 1 tab PO Q12H #8 tabs 05/02/23
ondansetron HCl 4 mg tablet 4 mg PO Q8H PRN nausea and vomiting #10 tabs 05/02/23
oxycodone 5 mg tablet 5 mg PO Q4HPRN PRN moderate pain #20 tabs 05/02/23
Home Medication Changes
Pending Results: No
Total time spent discharging patient (in min): 42
[2023-05-02] MEDS: PREVNAR 20 0.5 ML IM (12:44)
[2023-05-02 13:01] VITALS: BP 120/68
--- NOTE | 2023-05-02 14:41 | VNURNOTE ---
Home Health Liaison met with patient at 1230 to discuss [facility] nurse/therapy, visits, schedule and homebound status. Patient is agreeable and understands that visits at home will be 2-3 x per week to assess and teach medical management.
[facility] brochure provided with contact information. Patient is aware that [facility] will contact her for start of care in 1-2 days after discharge from .
[facility] referral completed in Care Port.
== END 2023-05-02 13:04 | disposition home health service (06) | DRG 854 ==
LOC: 2 SOUTH 23:50
PROVIDERS: Emergency Medicine; Internal Medicine; Registered Nurse; ADMITTING PHYSICIAN Hospitalist; ATTENDING PHYSICIAN Internal Medicine; CONSULT PHYSICIAN Surgery; EMERGENCY PHYSICIAN Emergency Medicine; FAMILY PHYSICIAN Internal Medicine
PROC: 0DJD8ZZ Inspection of Lower Intestinal Tract, Via Natural or Artificial Opening Endoscopic (ICD-10-PCS; 2023-04-28)
PROC: 0DTN0ZZ Resection of Sigmoid Colon, Open Approach (ICD-10-PCS; 2023-04-28)
DX: A41.9 Sepsis, unspecified organism (principal); D62 Acute posthemorrhagic anemia; E87.1 Hypo-osmolality and hyponatremia; K57.20 Diverticulitis of large intestine with perforation and abscess without bleeding; M81.0 Age-related osteoporosis without current pathological fracture; K63.5 Polyp of colon; R06.89 Other abnormalities of breathing; R09.02 Hypoxemia
CPT/HCPCS: 88307; 74177; 80048; 80053; 83690; 83735; 85014; 85018; 85025; 85027; 86803; 86850; 86900; 86901; 87040; 90677; 93005; 96365; 97116; 97162; 97530; 99291; G0009; P9045; Q9967

== ENCOUNTER → 2024-01-15 12:02 | Outpatient (REF) | payer MEDICARE, SELFPAY | LOC: WDC 12:02 | PROVIDERS: ATTENDING PHYSICIAN Nurse Practitioner Adult Health; FAMILY PHYSICIAN Internal Medicine | DX: Z12.31 Encounter for screening mammogram for malignant neoplasm of breast (principal) | CPT/HCPCS: 77063; 77067 ==

== ENCOUNTER 2024-11-28 06:21 | Day surgery (SDC) | payer MEDICARE, SELFPAY | END 2024-11-28 12:03 | disposition home or self-care (01) | LOC: GI 06:21 | PROVIDERS: ATTENDING PHYSICIAN Specialist; FAMILY PHYSICIAN Internal Medicine | DX: Z12.11 Encounter for screening for malignant neoplasm of colon (principal); K57.30 Diverticulosis of large intestine without perforation or abscess without bleeding; D12.3 Benign neoplasm of transverse colon; D12.2 Benign neoplasm of ascending colon; K63.5 Polyp of colon; Z98.0 Intestinal bypass and anastomosis status; Z86.0101 Personal history of adenomatous and serrated colon polyps | CPT/HCPCS: 45385; 45380; 88305 ==